=== PATIENT | female | born 1950 | race Caucasian/White ===

== ENCOUNTER 2021-11-29 07:30 | Emergency (ER) | payer MEDICARE, OTHER ==
[2021-11-29] MEDS ORDERED: Ibuprofen 600 MG Tab PO ONE (08:07)
== END 2021-11-29 09:50 | disposition home or self-care (01) ==
LOC: MW.ED 07:30
DX: M25.562 Pain in left knee (principal); Z88.5 Allergy status to narcotic agent
CPT/HCPCS: 73562; 99283; A9270; 99282

== ENCOUNTER 2021-12-21 23:50 | Emergency (ER) | payer MEDICARE, OTHER ==
[2021-12-22] MEDS: Alum Hydro/Mag Hydro/Simeth XS 15 ML, Lidocaine 2% 5 ML PO ONE ×2 (01:39)
[2021-12-22 01:46] LABS: BLOOD UREA NITROGEN,BUN 23 mg/dL (7.0-18.0); CARBON DIOXIDE,CO2 27.6 mmol/L (21.0-32.0); CHLORIDE,CL 104 mmol/L (98-107); ESTIMATED GFR 69 mL/min (>60); GLUCOSE RANDOM 94 mg/dL (74-106); SODIUM,NA 139 mmol/L (136-145)
[2021-12-22 06:04] LABS: LIPASE 218 U/L (73-393)
== END 2021-12-22 04:04 | disposition home or self-care (01) ==
LOC: MW.ED 23:50
DX: K22.4 Dyskinesia of esophagus (principal); Z88.5 Allergy status to narcotic agent
CPT/HCPCS: 36415; 80053; 82150; 83690; 84484; 85025; 93005; 93010; 99284; 99285; A9270-GY